=== PATIENT | female | born 2000 | race Caucasian/White ===

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

== ENCOUNTER 2024-05-06 08:41 | Outpatient (CLI) | payer OTHER, SELFPAY ==
[2024-05-06 14:40] LABS: Basophils Percent Auto 0.2 % (0.2-1.2); Eosinophils Absolute Auto 0.1 K/mm3 (0-0.3); Eosinophils Percent Auto 1.6 % (0-4.4); Hematocrit 42.4 % (37.0-47.0); Hemoglobin 13.6 g/dL (12.0-15.0); Immature Granulocyte Absolute 0.01 K/mm3 (0.00-0.031); Immature Granulocyte Percent A 0.2 % (0-0.5); Lymphocytes Absolute Auto 1.89 K/mm3 (0.9-3.2); Lymphocytes Percent Auto 37.1 % (18.3-44.2); Mean Corpuscular HGB Conc 32.1 g/dl (32-36); Mean Corpuscular Hemoglobin 28.7 pg (26-34); Mean Corpuscular Volume 89.5 fl (80-100); Mean Platelet Volume 12.1 fl (7.4-10.4); Monocytes Absolute Auto 0.5 K/mm3 (0.1-0.6); Monocytes Percent Auto 9.6 % (2.6-8.5); Neutrophils Absolute Auto 2.6 K/mm3 (1.3-6.7); Neutrophils Percent Auto 51.3 % (45.5-73.1); Platelet Count Result 199 k/mm3 (150-375); Red Blood Count 4.74 M/mm3 (4.2-5.4); Red Cell Distribution Width 11.9 % (11.5-14.5); White Blood Count 5.1 K/mm3 (4.5-10.0)
[2024-05-06 15:23] LABS: Alanine Aminotransferase 13 U/L (6-35); Albumin Level 4.2 g/dL (3.5-5.1); Alkaline Phosphatase 57 U/L (38-126); Anion Gap 8 mmol/L (4-12); Aspartate Amino Transferase 51 U/L (14-36); Bilirubin,Total 1.2 mg/dL (0.2-1.3); Blood Urea Nitrogen 7 mg/dL (7-17); Calcium 9.2 mg/dL (8.4-10.2); Carbon Dioxide 29 mmol/L (22-30); Chloride 101 mmol/L (98-107); Cholesterol 186 mg/dL (0-200); Estimated Glomerular Filt Rate > 60; Glucose 67 mg/dL (65-110); HDL Direct 76 mg/dL; Potassium 3.9 mmol/L (3.4-5.0); Sodium 138 mmol/L (137-145); Triglycerides 58 mg/dL (<150)
[2024-05-06 15:35] LABS: LDL Cholesterol Direct 91 mg/dL
[2024-05-10 18:24] LABS: Immunoglobulin A 111 mg/dL (47-310); TTG IGA AB <1.0 U/mL
== END 2024-05-06 08:42 | disposition home or self-care (01) ==
LOC: ANHGOSHLAB 08:42
PROVIDERS: PCP Nurse Practitioner; Visit Provider Nurse Practitioner
DX: Z13.220 Encounter for screening for lipoid disorders (principal); R19.7 Diarrhea, unspecified
CPT/HCPCS: 36415; 80053; 80061; 82784; 84443; 85025; 86364

== ENCOUNTER 2025-09-06 14:17 | Emergency (ER) | payer OTHER, SELFPAY ==
--- OUTSIDE RECORDS SUMMARY | 2025-09-06 14:20 | XMS_ITS ---
Author Organization Unknown ENCOUNTERS Encounter Performer Location Date Diagnosis Diagnosis Status Outpatient [address] [id number] [facility] *Note: Encounters from your own facility or health system may be excluded. Allergies, Adverse Reactions, Alerts Allergen Type Severity Identification Date Medications Name Date Quantity Days Supplied GPI Number
--- OUTSIDE RECORDS SUMMARY | 2025-09-06 14:20 | XMS_ITS | Clinical Summary ---
Author Organization [facility] Address [address] [place] [address] Phone Care Team Providers Care Screening Tech Name Role Phone Chip Neumann MD Primary Care Provider Allergies No known active allergies Medications Norgestimate-Eth inyl Estradiol (Tri-Sprintec) 0.18/0.215/0.25 MG-35 MCG Tablet TK 1 T PO QD 03/13/2019 Active Active Problems No known active problems Social History Tobacco Use Types Packs/Day Years Used Date Smoking Tobacco: Never Smokeless Tobacco: Never Comments No Sex and Gender Information Value Date Recorded Sex Assigned at Not on file Legal Sex Female 10:54 PM CDT Gender Identity Not on file Sexual Orientation Not on file Last Filed Vital Signs Vital Sign Reading Time Taken Comments Blood Pressure 114/72 05/20/2021 8:45 AM CDT Pulse 93 05/20/2021 8:45 AM CDT Temperature 37.1 C (98.8 F) 05/20/2021 8:45 AM CDT Respiratory Rate 20 05/20/2021 8:45 AM CDT Oxygen Saturation 98% 05/20/2021 8:45 AM CDT Inhaled Oxygen Concentration - - Weight 72.6 kg (160 lb) 05/20/2021 8:45 AM CDT Height - - Body Mass Index - - Plan of Treatment Health Maintenance Due Date Last Done Comments Hepatitis C Virus (HCV) Screening 2002 Meningococcal B Immunization (1 of 2 - Standard) 2018 Influenza Immunization (#1) 05/08/202510/08, 06/05/2014, 06/20/2013, Additional history exists SARS-COV-2 Immunization ( season) 2025 01/13/2022, 03/16/2021, 02/16/2021 Respiratory Syncytial Virus (RSV) Immunization (Adult) (1 - 1-dose 75+ series) 2077 Polio (IPV) Immunization Discontinued 2002, 09/09 Hepatitis B Immunization Completed 003, 2002, 2002 Pneumococcal Immunization Combined Aged Out 08/09/2004, 02/02/2003, 2002, Additional history exists No longer eligible based on patient's age to complete this topic Hepatitis A Immunization Discontinued 006, 08/05/2005, 10/05/2004, Additional history exists Measles Mumps Rubella (MMR) Immunization Discontinued 08/11/2006, 2003 Varicella Immunization Completed 08/11/2006, 2003 DTaP/Tdap/Td Immunization Discontinued 2012, 08/03/2007, 02/23/2004, Additional history exists TdaP Immunization Completed 10/21/2012 Human Papillomavirus (HPV) Immunization Completed 09/22/2014, 05/25/2014, 02/28/2014 Meningococcal Immunization (ACWY) Completed 05/24/2020, 02/07/2014 Rotavirus Immunization Aged Out No lo nger eligible based on patient's age to complete this topic Insurance [facility] Care Teams Screening Tech Relationship Specialty Start Date End Date Chip Neumann MD [address] [place] [address] PCP - General Pediatrics 05/05/20
--- OUTSIDE RECORDS SUMMARY | 2025-09-06 14:20 | XMS_ITS | Clinical Summary ---
Author Organization [address] Address [address] [place] [id number] Care Team Providers Care Conference Organizer Name Role Phone Chip Neumann MD Primary Care Provider Allergies No known active allergies Medications ibuprofen (ibuprofen) 200 mg tab/cap take 1 capsule by oral route every 6 hours as needed 0 0 6 Active Additional Information Patient not taking.Reported on 03/31/2022 TRI-SPRINTEC, 28, 0.18/0.215/0.25 mg-35 mcg (28) per tablet TK 1 T PO QD 2 9 Active Active Problems Problem Noted Date Diagnosed Date Contusion of right elbow 04/22/2019 Elbow injury, right, initial encounter 9 Surgical History Surgery Date Site/Laterality Comments TONSILLECTOMY Tonsillectomy TONSILECTOMY, ADENOIDECTOMY, BILATERAL MYRINGOTOMY AND TUBES 09/07/2006 - 09/06/2007 Family History Medical History Relation Name Comments Cancer Other 1 Family history of Cancer, unknown; Diabetes type II Other 2 Family hist ory of Diabetes mellitus type 2; Heart disease Other 3 Family history of Heart problems; Lung disease Other 4 Family history of Lung problems; Relation Name Status Comments Other 1 Other 2 Other 3 Other 4 Social History Tobacco Use Types Packs/Day Years Used Date Smoking Tobacco: Never Smokeless Tobacco: Never Comments No Sex and Gender Information Value Date Recorded Sex Assigned at Not on file 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 Gender Identity Not on file Sexual Orientation Not on file Last Filed Vital Signs Vital Sign Reading Time Taken Comments Blood Pressure 108/60 03/20/2023 8:10 AM CDT Pulse 74 03/20/2023 8:10 AM CDT Temperature 37 C (98.6 F) 03/20/2023 8:10 AM CDT Respiratory Rate 16 03/20/2023 8:10 AM CDT Oxygen Saturation 98% 03/20/2023 8:10 AM CDT Inhaled Oxygen Concentration - - Weight 77.1 kg (170 lb) 03/20/2023 8:10 AM CDT Height 165 cm (5' 4.96) 03/20/2023 8:10 AM CDT Body Mass Index 28.32 03/20/2023 8:10 AM CDT Plan of Treatment Health Maintenance Due Date Last Done Comments Cervical Cancer Screening 2002 Depression Screening 2002 Hepatitis C Screening 2002 Meningococcal B Vaccine (1 o f 2 - Standard) 2018 Regular Well Visit/Exam 18-64 2020 DTaP/Tdap/Td Vaccine (7 - Td or Tdap) 10/21/2022 10/21/2012, 08/03/2007, 02/23/2004, Additional history exists Influenza Vaccine (#1) 2025 6, 06/05/2014, 06/20/2013, Additional history exists Hepatitis B Screening Completed 02/02/2003 , 2002, 2002 Pneumococcal vaccine <65 Completed 004, 02/02/2003, 2002, Additional history exists Varicella Vaccines Completed 08/11/2006, 02/23/2004 HPV Vaccines Completed 09/22/2014, 05/08, 02/28/2014 Insurance [employer] SIG [id number] [facility] Care Teams Conference Organizer Relationship Specialty Start Date End Date Chip Neumann MD PCP - General Pediatrics 11/15/18
[2025-09-06 14:23] VITALS: BP 111/68; PULSE 71; RESP 16; TEMP 36.6; O2SAT 100
[2025-09-06 14:59] LABS: EDCOVIDSCREEN Negative (Negative); EDINFLUASCREEN Negative (Negative); EDINFLUBSCREEN Negative (Negative)
[2025-09-06] MEDS: ONDANSETRON HCL ODT 4 MG TABLET 8 MG SUBLINGUAL (15:01)
--- NOTE | 2025-09-06 15:09 | ED.NAVMDI ---
HPI - Nausea/Vomiting/Diarrhea General Chief complaint: Nausea/Vomiting/Diarrhea Stated complaint: nausea/diarrhea Time Seen by Provider: 09/06/25 14:51 Source: patient and RN notes reviewed Mode of arrival: ambulatory Limitations: no limitations History of Present Illness HPI Narrative: 25-year-old female patient presents today complaining of 1 episode of diarrhea last night, but this has since resolved. Also complaining of nausea and vomiting x5 since mid morning today. Last episode of vomiting was just prior to arrival. States she has been unable to keep down food or fluids today. Denies fever, abdominal pain, URI symptoms. No OTC treatment prior to arrival. Mother, father, and lelia's father sick with similar symptoms last week. Related Data Allergies Allergy/AdvReac Type Severity Reaction Status Date / Time No Known Allergies Allergy Verified 09/06/25 14:35 PMFSH Surgical History Surgical History H/O adenoidectomy Hx of tonsillectomy Family History Family History Mother Heart problem Grandparent Heart problem Grandparent Heart problem Social History Social History Smoking status: Never smoker Alcohol intake: current Alcohol use details: 5-7 drinks per week Substance use: never Lack of Transportation: No Lack of Food: Never True Current Housing: I Have Housing Concerned About Future Housing: No Difficulty Paying Gas/Electric Bills: No Difficulty Paying for Meds: No Currently Unemployed: No Education: Bachelor's Degree Difficulty w/ Childcare or Family Care: No Living arrangements: with family Occupation/Education: student Gender identity (if verbalized by the patient): Female Sexual Orientation (if Verbalized by the Patient): Straight or Heterosexual Agree to blood products: Yes Comments At time of signature, I have reviewed and agree with nursing past medical, surgical, social and family history unless otherwise noted. Please see nursing chart for further information. There is no relevant family history pertinent to the presenting complaint Exam Narrative: GENERAL: Well-appearing, well-nourished, and in no acute distress. HEAD: Normocephalic, atraumatic. EYES: EOMI. No redness or drainage. Conjunctivae normal. ENT: Mucous membranes pink and moist. NECK: Normal AROM. CHEST: No respiratory distress. Clear to auscultation. HEART: Regular rate and rhythm. No murmur appreciated. ABDOMEN: Soft, nontender, nondistended, normal active bowel sounds. EXTREMITIES: Normal range of motion. No edema. SKIN: Warm, dry, no rash. Capillary refill normal. Normal skin turgor. NEURO: No focal deficits. Alert and oriented x3. Gait steady. PSYCH: Normal affect. No signs of depression or anxiety. Course Course Level of Care: Express Care Visit Vital Signs Vital signs: Vital Signs Temperature 98 F 09/06/25 14:23 Pulse Rate 71 09/06/25 14:23 Respiratory Rate 16 09/06/25 14:23 Blood Pressure 111/68 09/06/25 14:23 Pulse Oximetry 100 09/06/25 14:23 Oxygen Delivery Room Air 09/06/25 14:23 Temperature 98 F 09/06/25 14:23 Pulse Rate 71 09/06/25 14:23 Respiratory Rate 16 09/06/25 14:23 Blood Pressure 111/68 09/06/25 14:23 Pulse Oximetry 100 09/06/25 14:23 Oxygen Delivery Room Air 09/06/25 14:23 Reviewed [facility] Narrative Medical decision making narrative: 25-year-old female patient presents today complaining of 1 episode of diarrhea last night, but this has since resolved. Also complaining of nausea and vomiting x5 since mid morning today. Last episode of vomiting was just prior to arrival. States she has been unable to keep down food or fluids today. Denies fever, abdominal pain, URI symptoms. No OTC treatment prior to arrival. Mother, father, and lelia's father sick with similar symptoms last week. Normal physical exam. COVID and influenza negative. 8 mg of ODT Zofran given. Afterwards, patient states improvement in symptoms. 1530-p.o. challenge successful and patient is ready for discharge. Vital signs stable. Anticipatory guidance given. Prescription for Zofran sent to pharmacy. Differential Diagnosis Differential Diagnosis: Gastroenteritis, food poisoning, viral syndrome, COVID, influenza Lab Data [facility] Lab Attestation statement: I personally reviewed the patient's lab results. Labs: Lab Results 09/06/25 Range/Units 14:40 POC Influenza A Ag Negative (Negative) POC Influenza B Ag Negative (Negative) POC SARS CoV-2 Ag Negative (Negative) Critical Care Time Critical Care Time Critical Care Time: No Discharge Plan Discharge Clinical Impression: Nausea vomiting and diarrhea Patient Disposition: Home Condition: Stable Instructions: Acute Nausea and Vomiting (DC), Acute Diarrhea (ED) Additional Instructions: Take the Zofran as prescribed for your nausea and vomiting. Rest and stay hydrated. Follow-up with your PCP in 3 days if symptoms are not improving. Go to the ER immediately if you cannot keep down any fluids despite taking the medication. Patient Language: Comoran Prescriptions: New ondansetron 8 mg tablet,disintegrating 8 mg PO Q4-6H PRN (Reason: nausea and vomiting) Qty: 20 0RF Follow-up/Referrals: Diomedes Lopez DO [Primary Care Provider, Internal Medicine] Stand Alone Forms: Work/School Release IP Time of Disposition: 15:34
== END 2025-09-06 15:40 | disposition home or self-care (01) ==
PROVIDERS: Emergency Provider Nurse Practitioner; PCP Internal Medicine
DX: R11.2 Nausea with vomiting, unspecified (principal); R19.7 Diarrhea, unspecified; Z20.822 Contact with and (suspected) exposure to COVID-19
CPT/HCPCS: 87426; 87804; 99213; A9270; G0463